=== PATIENT | female | born 1970 | race Caucasian/White ===

== ENCOUNTER 2021-10-07 00:28 | Day surgery (SDC) | payer BC, SELFPAY ==
[2021-09-20 14:31] VITALS: BMI 36.5
--- NOTE | 2021-10-06 15:29 | P.PNAN_ITS ---
Anes - Initial Pre Proc Eval Procedure: Operation Date: 10/07/21 09:00 Proposed Procedures p Screening Colonoscopy - Nikolay Grayson MD <Mitesh Lei DO - Last Filed: 10/06/21 15:29> Date/Time: 10/06/21 15:29 <Mitesh Lei DO - Last Filed: 10/06/21 15:29> Surgeon: Nikolay Grayson MD <Mitesh Lei, DO - Last Filed: 10/06/21 15:29> Pre Op Diagnosis: neoplasm screening <Mitesh Lei DO - Last Filed: 10/06/21 15:29> Patient Data Age: 51 Gender: F Height: 1.73 m Weight: 109 kg <Mitesh Lei DO - Last Filed: 10/06/21 15:29> Allergies Allergy/AdvReac Type Severity Reaction Status Date / Time No Known Allergies Allergy Verified 10/07/21 07:44 <Mitesh Lei DO - Last Filed: 10/06/21 15:29> Home Medications Medication Instructions Recorded Confirmed Type alprazolam 0.25 mg tablet 0.25 tablet PO TID PRN Anxiety 09/20/21 10/07/21 History <Mitesh Lei DO - Last Filed: 10/06/21 15:29> Patient hx anesthesia problems: none <Jennifer Mcallister CRNA - Last Filed: 10/07/21 08:20> Family hx anesthesia problems: none <Jennifer Mcallister CRNA - Last Filed: 10/07/21 08:20> Results Review: All pre-operative results and documents have been reviewed as part of the pre-operative evaluation. <Mitesh Lei DO - Last Filed: 10/06/21 15:29> [facility] Social History Social History: Social History Living arrangements: with family Spiritual care concerns: No <Mitesh Lei DO - Last Filed: 10/06/21 15:29> Anes - Eval Final PreProcedure Day of Procedure 10/06/21 15:29 <Mitesh Lei DO - Last Filed: 10/06/21 15:29> Patient weight: obese <Mitesh Lei - Last Filed: 10/06/21 15:29> Heart: regular rate and rhythm <Mitesh Lei DO - Last Filed: 10/06/21 15:29> Lungs: clear to auscultation <Mitesh Lei - Last Filed: 10/06/21 15:29> Airway: Mallampati scale class II <Mitesh Lei DO - Last Filed: 10/06/21 15:29> Neurological: alert and oriented <Mitesh Lei - Last Filed: 10/06/21 15:29> Last oral intake: >/= 8 hours <Mitesh Lei DO - Last Filed: 10/06/21 15:29> ASA classification: II <Mitesh Lei - Last Filed: 10/06/21 15:29> Emergent: no <Mitesh Lei DO - Last Filed: 10/06/21 15:29> Anesthetic plan: proceed <Mitesh Lei - Last Filed: 10/06/21 15:29> Anesthesia type and monitoring: general GIVS and standard monitoring <Mitesh Lie - Last Filed: 10/06/21 15:29> Results Review: All pre-operative results and documents have been reviewed as part of the pre-operative evaluation. <Mitesh Lei - Last Filed: 10/06/21 15:29> Informed Consent: The patient's anesthetic plan and its attendant risks and benefits were discussed with the patient/family/POA. Questions were solicited and answers provided to the satisfaction of the patient/family/POA. <Mitesh Lei DO - Last Filed: 10/06/21 15:29>
[2021-10-07 07:45] VITALS: BP 138/87; PULSE 77; RESP 18; TEMP 36.8; O2SAT 100
[2021-10-07] MEDS: LACTATED RINGERS 1,000 ML 150 ML IV CONT (07:54)
--- NOTE | 2021-10-07 08:20 | P.PNAN_ITS ---
Anes - Eval Final PreProcedure Day of Procedure 10/07/21 08:30 Patient weight: obese Heart: regular rate and rhythm Lungs: clear to auscultation Airway: Mallampati scale class II Neurological: alert and oriented Last oral intake: >/= 8 hours ASA classification: II Anesthetic plan: proceed Anesthesia type and monitoring: general GIVS and standard monitoring Results Review: All pre-operative results and documents have been reviewed as part of the pre- operative evaluation. Informed Consent: The patient's anesthetic plan and its attendant risks and benefits were discussed with the patient/family/POA. Questions were solicited and answers provided to the satisfaction of the patient/family/POA.
--- NOTE | 2021-10-07 08:20 | PM.HPGS ---
History of Present Illness History of Present Illness Consent: Risks, benefits, and alternatives have been discussed and questions answered. Patient agrees to proceed with procedure. Chief complaint: neoplasm screening Narrative: Hilary Ortiz is a 51 year old female here for first screening colonoscopy Review of Systems Constitutional: Constitutional: Denies headache(s) and Denies weakness Eyes: Eyes: Denies blurry vision ENT: Reports Normal hearing present, Denies headache(s) and Denies neck pain Cardiovascular: Cardiovascular: Denies chest pain and Denies dyspnea Respiratory: Respiratory: Denies dyspnea Gastrointestinal: Gastrointestinal: Reports no additional gastrointestinal complaints Genitourinary: Genitourinary: Denies dysuria Musculoskeletal: Musculoskeletal: Denies neck pain Integumentary/Breasts: Skin/Breast: Denies dry skin Neurologic: Reports Normal hearing present, Denies headache(s) and Denies weakness Psychiatric: Psychiatric: Denies anxiety Endocrine: Endocrine: Denies change in body appearance Hematologic/Lymphatic: Hematologic/Lymphatic: Denies easy bleeding Allergic/Immunologic: Allergic/Immunologic: Denies urticaria PMF Past Medical History Medical History (Updated 10/07/21 @ 08:20 by Nikolay Grayson MD) Colon cancer screening Social History Social History Living arrangements: with family Spiritual care concerns: No Meds Home Medications and Allergies Home Medications Medication Instructions Recorded Confirmed Type alprazolam 0.25 mg tablet 0.25 tablet PO TID PRN Anxiety 09/20/21 10/07/21 History Allergies Allergy/AdvReac Type Severity Reaction Status Date / Time No Known Allergies Allergy Verified 10/07/21 07:44 Vital Signs Vital Signs - 24 hr 10/07/21 07:45 Temperature 98.3 F Pulse Rate 77 Respiratory Rate 18 Blood Pressure 138/87 Pulse Oximetry 100 Oxygen Delivery Room Air Exam Const: General: comfortable and no acute distress HENMT: General nose exam: Normal nares present Eyes: General: appearance normal, both eyes and all related structures Neck: Neck: no JVD Resp: Auscultation: clear to auscultation bilaterally Cardio: Rate: regular rate Rhythm: regular rhythm GI: Inspection: non-distended GI Palp: Yes Soft to palpation Skin: General skin exam: normal color Neuro: General: gait normal Speech: normal speech Extrem: General: normal to inspection Psych: Mental Status: mental status grossly normal Assessment and Plan Assessment and plan (1) Colon cancer screening: Code(s): Z12.11 - Encounter for screening for malignant neoplasm of colon Status: Acute Assessment and Plan: colonoscopy
[2021-10-07 08:39] VITALS: BP 129/81; PULSE 72; RESP 25; O2SAT 96
[2021-10-07 08:49] VITALS: BP 153/89; PULSE 71; RESP 20; O2SAT 99
[2021-10-07 08:59] VITALS: BP 165/91; PULSE 68; RESP 22; O2SAT 98
== END 2021-10-07 09:05 | disposition home or self-care (01) ==
PROVIDERS: Visit Provider Internal Medicine Gastroenterology
PROC: 0DJD8ZZ Inspection of Lower Intestinal Tract, Via Natural or Artificial Opening Endoscopic (ICD-10-PCS; CPT 45378; principal; 2021-10-07 09:00)
DX: Z12.11 Encounter for screening for malignant neoplasm of colon (principal); K64.8 Other hemorrhoids; E66.9 Obesity, unspecified; Z68.36 Body mass index [BMI] 36.0-36.9, adult
CPT/HCPCS: 45378; J2704; J7120

== ENCOUNTER 2022-02-22 11:22 | Outpatient (CLI) | payer BC, SELFPAY ==
--- NOTE | ~2022-02-22 | US_ITS ---
US axilla LT 02/22/2022 12:02 Indication: Left axillary pain Procedure: High-resolution Limited ultrasound of the left axilla Comparison: No prior studies for comparison. Findings: There is normal heterogeneous echotexture without focal solid or cystic mass. Impression: 1: Normal ultrasound of the left axilla. No discrete mass. Reviewed, dictated and finalized at location A. LY RESOURCE MANAGEMENT SPECIALIST Impression: 1: Normal ultrasound of the left axilla. No discrete mass.
== END 2022-02-22 11:23 | disposition home or self-care (01) ==
PROVIDERS: Visit Provider Obstetrics & Gynecology
DX: N64.4 Mastodynia (principal)
CPT/HCPCS: 76882

== ENCOUNTER 2025-02-04 13:05 | Outpatient (CLI) | payer BC, SELFPAY ==
--- NOTE | ~2025-02-04 | MR_ITS ---
EXAMINATION: MR brain/brain stem wo/w con DATE: 02/04/2025 14:21 INDICATION: Chronic daily headaches TECHNIQUE: Magnetic resonance imaging (MRI) of the brain and brainstem was performed without intravenous contrast. Sequences included sagittal and axial T1-weighted SE, axial diffusion-weighted FS SE, axial T2*-weighted GRE, axial T2-weighted FLAIR, and axial T2-weighted FSE. Postcontrast axial and coronal T1- weighted SE was obtained. Apparent diffusion coefficient (ADC) maps were created. COMPARISON: None. FINDINGS: There are no areas of restricted diffusion to suggest acute infarction. 1.7 x 1.5 x 1.2 cm avidly enhancing dural based mass along the right side of the anterior falx most consistent with a meningioma. No intracranial hemorrhage or abnormal intra-axial mass lesion. There are no intraparenchymal signal abnormalities seen on the other pulse sequences. The ventricles are symmetric and normal in size. There are no abnormal extra-axial fluid collections. Flow voids are seen in the cerebral arteries on the T2-weighted sequences consistent with their expected patency. Mild mucosal thickening in the bilateral ethmoid and right frontal sinuses. Visualized orbits and soft tissues are unremarkable. There are no other areas of abnormal enhancement on the post contrast images. IMPRESSION: 1. 1.7 x 1.5 x 1.2 cm avidly enhancing dural based extra-axial mass along the right side of the anterior falx most consistent with a meningioma. 2. Otherwise normal brain with no acute intracranial process. Reviewed, dictated and finalized at location A. IAL EDUCATION SUPERVISOR IMPRESSION: 1. 1.7 x 1.5 x 1.2 cm avidly enhancing dural based extra-axial mass along the r ight side of the anterior falx most consistent with a meningioma. 2. Otherwise normal brain with no acute intracranial process.
== END 2025-02-04 13:06 | disposition home or self-care (01) ==
PROVIDERS: PCP Physician Assistant; Visit Provider Physician Assistant
DX: G93.89 Other specified disorders of brain (principal)
CPT/HCPCS: 70553; A9577